=== PATIENT | male | born 1940 | race Two or more races ===

== ENCOUNTER 2020-08-26 21:20 | Inpatient (IN) | payer MEDICAID ==
[~2020-08-26] VITALS: Ht 170.2 cm; Wt 74.8 kg
[2020-08-26 21:30] VITALS: BP 123/70
--- NOTE | 2020-08-26 21:30 | NUR ---
ED Nurse Note: Patient brought in by amvulance from [facility] d/t bleeding urethra, per EMS pt had a castillo catheter that the nursing facility removed and he has been saturating his diapers with blood at the facility. Patient nonverbal, aao x 1, nonambulatory. Patient placed on monitor worker, no acute distress noted upon assessment.
[2020-08-26] MEDS ORDERED: FUROSEMIDE40 MG ORAL (21:40)
[2020-08-26] MEDS ORDERED: VENTOLIN HFA18 GM INH (21:40)
[2020-08-26] MEDS ORDERED: FLOMAX0.4 MG ORAL (21:40)
[2020-08-26] MEDS ORDERED: SILDENAFIL20 MG ORAL (21:40)
[2020-08-26] MEDS ORDERED: METOPROLOL SUCC50 MG ORAL (21:40)
[2020-08-26] MEDS ORDERED: ASPIRIN81 MG ORAL (21:40)
[2020-08-26] MEDS ORDERED: MAGNESIUM400 M1 PO (21:40)
[2020-08-26] MEDS ORDERED: ZYPREXA5 MG ORAL (21:40)
[2020-08-26] MEDS ORDERED: FOLIC ACID1 MG ORAL (21:40)
[2020-08-26] MEDS ORDERED: ACETAMINOPHEN325 M1 ORAL (21:40)
[2020-08-26] MEDS ORDERED: ATORVASTATIN CA40 MG ORAL (21:40)
[2020-08-26] MEDS ORDERED: MULTIVITAMINS1 EAC8 ORAL (21:40)
[2020-08-26] MEDS ORDERED: ELIQUIS5 MG ORAL (21:40)
[2020-08-26] MEDS ORDERED: HYDRALAZINE HCL10 MG ORAL (21:40)
[2020-08-26] MEDS ORDERED: SENOKOT8.6 MG PO (21:40)
[2020-08-26] MEDS ORDERED: KLOR-CON 88 MEQ ORAL (21:40)
--- NOTE | 2020-08-26 21:58 | Emergency Room Report ---
History of Present Illness General Chief Complaint: Male Urogenital Problems Source: Medical Record, EMS Present Illness HPI Disclaimer: Please note that this report is being documented using DRAGON technology. This can lead to erroneous entry secondary to incorrect interpretation by the dictating instrument. HPI: 79-year-old male history of atrial fibrillation on apixaban, dementia, CVA, hypertension, hyperlipidemia presents for evaluation of hematuria. Appears the patient has a chronic indwelling Markham. This was removed prior to arrival. EMS noted bleeding in the ambulance and [facility] documents bleeding from urethra. Unknown if there was a traumatic removal of the Markham or not. Unable to obtain any information from patient. Arrives tachycardic. Does not appear to be in distress. PMH: Atrial fibrillation, CVA, dementia, hypertension, hyperlipidemia PSH: Unable to obtain from patient Allergies: Unable to obtain from patient Social Hx: Unable to obtain from patient Allergies: Coded Allergies: No Known Allergies (Unverified , 08/26/20) COVID-19 Screening Contact w/high risk pt: Yes Experienced COVID-19 symptoms?: No COVID-19 Testing performed GLOVE TAGGER: No Nursing Documentation-PMH Hx Cardiac Problems: Yes - A. fib, CHF, PNA Hx Hypertension: Yes - hypertensive encephalopathy Hx Asthma: Yes Review of Systems All Other Systems: negative except mentioned in HPI Physical Exam Vital Signs Date Time Temp Pulse Resp B/P (MAP) Pulse Ox O2 Delivery O2 Flow Rate FiO2 08/26/20 21:23 96.8 72 18 89/60 (70) 99 Room Air General: Awake, confused. Bloodstained closed in hands HEENT: NC/AT. EOMI. Cardiovascular: Tachycardic Resp: Normal work of breathing. No cough, wheezing or crackles appreciated Abdomen: Abdomen is soft, nondistended : No Markham present. Dried blood over the penis and urethral meatus. No active bleeding. Skin: Intact. No abrasions, laceration or rash over the exposed skin MSK: Normal tone and bulk. Moving all extremities. No obvious deformity. Neuro: Awake, confused Procedures Critical Care Time Critical Care Time Total critical care time: Approximately 45 minutes Due to a high probability of clinically significant, life threatening deterioration, the patient required the highest level of preparedness to intervene emergently and I personally spent this critical care time directly and personally managing the patient. This critical care time included obtaining a history, examining the patient, pulse oximetry, ordering and reviewing studies, ordering treatments, evaluating response to treatment and updating management plan as needed, frequent reassessment and discussion with other providers as well as arranging for ultimate disposition. This critical to care time was performed to assess and manage the high probability of life-threatening deterioration that could result in multiorgan failure. This critical care time is separate from the separately billable procedures and treating other patients. Medical Decision Making Diagnostic Impression: Primary Impression: Atrial fibrillation with rapid ventricular response Additional Impressions: Gross hematuria Sepsis Elevated troponin UTI (urinary tract infection) ER Course Is a 79-year-old male history of atrial fibrillation on apixaban, BPH with previous Markham presenting for evaluation of hematuria. Differential includes was not limited to traumatic removal of Markham, UTI, supratherapeutic anticoagulation, kidney failure, abdominal mass, bladder injury, rapid atrial fibrillation, arrhythmia, ACS, ND, pneumonia, sepsis among others. EKG on arrival shows patient is in rapid atrial fibrillation with rate in the 140s. Cardizem given with moderate improvement though still remains tachycardic. White count significantly elevated. Urine consistent with acute urinary tract infection and gross hematuria. Patient was given broad-spectrum antibiotics. Blood culture sent. Troponin elevated. Patient receiving a 30 cc/kg IV fluid bolus. Markham was replaced; no resistance noted on insertion. Receiving continuous bladder irrigation. Patient will be admitted to his PMD, Dr. Lombardo Sepsis reevaluation: I, Dr. Harris Veloz, reevaluated the patient Capillary refill: Less than 2 seconds MAP: 75 Heart rate: 115 Respiratory rate: 20 Initial Lactate: 3.3 Repeat Lactate: 2.2 Pressors: Not indicated at this time No signs of fluid overload Laboratory Tests Test 08/26/20 21:50 08/26/20 23:20 08/26/20 23:22 White Blood Count 21.4 K/UL (4.8-10.8) H Red Blood Count 3.85 M/UL (4.70-6.10) L Hemoglobin 12.5 G/DL (14.2-18.0) L Hematocrit 37.3 % (42.0-52.0) L Mean Corpuscular Volume 97 FL (80-99) Mean Corpuscular Hemoglobin 32.5 PG (27.0-31.0) H Mean Corpuscular Hemoglobin Concent 33.6 G/DL (32.0-36.0) Red Cell Distribution Width 14.2 % (11.6-14.8) Platelet Count 47 K/UL (150-450) L Mean Platelet Volume 10.9 FL (6.5-10.1) H Neutrophils (%) (Auto) % (45.0-75.0) Lymphocytes (%) (Auto) % (20.0-45.0) Monocytes (%) (Auto) % (1.0-10.0) Eosinophils (%) (Auto) % (0.0-3.0) Basophils (%) (Auto) % (0.0-2.0) Differential Total Cells Counted 100 Neutrophils % (Manual) 66 % (45-75) Lymphocytes % (Manual) 19 % (20-45) L Monocytes % (Manual) 6 % (1-10) Eosinophils % (Manual) 1 % (0-3) Basophils % (Manual) 0 % (0-2) Metamyelocytes % 1 % (0-0) H Band Neutrophils 7 % (0-8) Nucleated Red Blood Cells 2 /100 WBC Platelet Estimate Decreased L Platelet Morphology Normal Hypochromasia 1+ Anisocytosis 1+ Prothrombin Time 15.8 SEC (9.30-11.50) H Prothrombin Time INR 1.5 (0.9-1.1) H Activated Partial Thromboplast Time 27 SEC (23-33) Sodium Level 139 MMOL/L (136-145) Potassium Level 3.5 MMOL/L (3.5-5.1) Chloride Level 104 MMOL/L (98-107) Carbon Dioxide Level 28 MMOL/L (21-32) Anion Gap 7 mmol/L (5-15) Blood Urea Nitrogen 73 mg/dL (7-18) H Creatinine 2.2 MG/DL (0.55-1.30) H Estimated Glomerular Filtration Rate 29.2 mL/min (>60) Glucose Level 160 MG/DL (74-106) H Lactic Acid Level 3.30 mmol/L (0.4-2.0) H 2.20 mmol/L (0.66-2.22) Calcium Level 8.5 MG/DL (8.5-10.1) Total Bilirubin 4.4 MG/DL (0.2-1.0) H Direct Bilirubin 3.3 MG/DL (0.0-0.3) H Aspartate Amino Transferase (AST) 75 U/L (15-37) H Alanine Aminotransferase (ALT) 34 U/L (12-78) Alkaline Phosphatase 413 U/L (46-116) H Total Creatine Kinase 107 U/L (26-308) Creatine Kinase MB 1.2 NG/ML (0.0-3.6) Creatine Kinase MB Relative Index 1.1 Troponin I 0.132 ng/mL (0.000-0.056) Total Protein 6.9 G/DL (6.4-8.2) Albumin 2.4 G/DL (3.4-5.0) L Globulin 4.5 g/dL Albumin/Globulin Ratio 0.5 (1.0-2.7) L Urine Color Red Urine Appearance Cloudy Urine pH 5 (4.5-8.0) Urine Specific [place] 1.005 (1.005-1.035) Urine Protein 3+ (NEGATIVE) H Urine Glucose (UA) Negative (NEGATIVE) Urine Ketones Negative (NEGATIVE) Urine Blood 5+ (NEGATIVE) H Urine Nitrite Positive (NEGATIVE) H Urine Bilirubin Negative (NEGATIVE) Urine Urobilinogen Normal MG/DL (0.0-1.0) Urine Leukocyte Esterase 2+ (NEGATIVE) H Urine RBC Tntc /HPF (0 - 0) H Urine WBC 15-20 /HPF (0 - 0) H Urine Squamous Epithelial Cells None /LPF (NONE/OCC) Urine Bacteria Few /HPF (NONE) Microbiology Date/Time Source Procedure Growth Status 08/26/20 22:33 Nasopharynx SARS-CoV-2 RdRp Gene Assay - Final Complete EKG Diagnostic Results Troponin ordered: Yes When was troponin ordered?: Aug 26, 2020 EKG Time: 21:47 Rate: tachycardiac Other Impression Tachycardia, irregularly irregular rhythm, left axis deviation. Consistent with rapid atrial fibrillation ASA given to the pt in ED: No - Patient is on apixaban Rhythm Strip Diag. Results Rhythm Strip Time: 21:47 EP Interpretation: yes Rate: 140s Rhythm: other - Irregularly irregular rhythm consistent with atrial fibrillation Chest X-Ray Diagnostic Results Chest X-Ray Diagnostic Results : Chest X-Ray Ordered: Yes # of Views/Limited/Complete: 1 View Indication: Other - Cough EP Interpretation: Yes Interpretation: no consolidation, no effusion, no pneumothorax, no acute cardiopulmonary disease Impression: No acute disease Last Vital Signs Date Time Temp Pulse Resp B/P (MAP) Pulse Ox O2 Delivery O2 Flow Rate FiO2 08/26/20 21:23 96.8 72 18 89/60 (70) 99 Room Air Disposition: ADMITTED INPATIENT Condition: Serious Referrals: Eric Lombardo MD (PCP) Harris Veloz MD Aug 26, 2020 21:58
[2020-08-26] MEDS ORDERED: dilTIAZem HCl 25mg/5ml Inj IVP ONE (22:00)
[2020-08-26 22:06] LABS: HEMATOCRIT 37.3 % (42.0-52.0); HEMOGLOBIN 12.5 G/DL (14.2-18.0); MEAN CORPUSCULAR VOLUME 97 FL (80-99); PLATELET COUNT 47 K/UL (150-450); RED BLOOD COUNT 3.85 M/UL (4.70-6.10); RED CELL DISTRIBUTION WIDTH 14.2 % (11.6-14.8); WHITE BLOOD COUNT 21.4 K/UL (4.8-10.8)
[2020-08-26 22:13] LABS: INR 1.5 (0.9-1.1)
[2020-08-26 22:22] LABS: CALCIUM 8.5 MG/DL (8.5-10.1); CREATININE 2.2 MG/DL (0.55-1.30); POTASSIUM 3.5 MMOL/L (3.5-5.1)
--- NOTE | 2020-08-26 22:24 | NUR ---
ED Nurse Note: 1300ml gross hematuria noted in castillo bag, ERMD aware.
--- NOTE | 2020-08-26 22:24 | NUR ---
ED Nurse Note: 3000mL continuous irrigation initiated per ERMD.
[2020-08-26] MEDS ORDERED: Piperacillin/Tazobactam 3.375 GM in NS 110 ML IVPB ONE (22:30)
[2020-08-26] MEDS ORDERED: Vancomycin 1 GM in NS 275 ML IVPB ONE (22:30)
[2020-08-26 22:35] LABS: ALBUMIN 2.4 G/DL (3.4-5.0); ALBUMIN/GLOBULIN RATIO 0.5 (1.0-2.7); BILIRUBIN,TOTAL 4.4 MG/DL (0.2-1.0); CKMB 1.2 NG/ML (0.0-3.6)
[2020-08-26 22:37] LABS: BILIRUBIN,DIRECT 3.3 MG/DL (0.0-0.3)
[2020-08-26] MEDS ORDERED: Sodium Chloride 2,200 ML IVLG ONE (22:45)
[2020-08-26] MEDS ORDERED: Acetaminophen 650 MG SUPP RECTAL PRN (23:30)
--- NOTE | 2020-08-26 23:32 | NUR ---
ED Nurse Note: FOLLOWED UP WITH BILL MABRY OF [facility]. REQUESTED POLST/CODE STATUS TO BE FAXED.
[2020-08-26 23:38] LABS: APPEARANCE,URINE CLOUDY; BILIRUBIN, URINE NEGATIVE (NEGATIVE); GLUCOSE, URINE (UA) NEGATIVE (NEGATIVE); KETONES,URINE NEGATIVE (NEGATIVE); LEUKOCYTE ESTERASE ,URINE 2+ (NEGATIVE); NITRITE,URINE POSITIVE (NEGATIVE); PH,URINE 5 (4.5-8.0); PROTEIN,URINE 3+ (NEGATIVE); UROBILINOGEN,URINE NORMAL MG/DL (0.0-1.0)
[2020-08-26 23:48] LABS: COLOR,URINE RED
[2020-08-27] VITALS (15 sets, daily range): BP systolic 80–143; BP diastolic 29–80
--- NOTE | 2020-08-27 00:28 | NUR ---
ED Nurse Note: report given to BILL Grider.
--- NOTE | 2020-08-27 00:40 | NUR ---
TRANSFER TO FLOOR: Patient transferred to SDU as ordered, per ERMD. Report given to BILL Grider. Patient transported via gurney in stable condition.
--- NOTE | 2020-08-27 00:49 | Diagnostic Imaging Report ---
EXAM: XR Chest, 1 View CLINICAL HISTORY: WEAK TECHNIQUE: Frontal view of the chest. COMPARISON: No relevant prior studies available. FINDINGS: Lungs: Small amount of airspace opacity over right lower lung zone Pleural space: Unremarkable. No pneumothorax. Mediastinum: Calcified aorta Bones/joints: Osteopenia. Moderate degenerative changes IMPRESSION: Small amount of right basilar atelectasis
--- NOTE | 2020-08-27 01:00 | NUR ---
NURSE NOTES: Received report from Cassy, Pt is transported via hospital bed via transportation staff. Pt is confused, awake and restless. pt was previously in restraints in ER for pulling devices.Pt has castillo cath 3 way intact and patent draining bright red urine. Pt has old blood on oral orifice and bleeding on the anal area. Pt has RAC g20 intact and patent. On room air satting at 95%. No pain noted. Pt is mumbling and very confused. Skin assessment done. Skin is intact orient to hospital. Bed in lowest position. Call ight within reach. MI- [address] aware[address] Veloz aware of platelet 47.
--- NOTE | 2020-08-27 01:00 | NUR ---
NURSE NOTES: Platelet of 47- Dr. Veloz aware per ER Nurse.
--- NOTE | 2020-08-27 01:15 | NUR ---
NURSE NOTES: Spoke to Dr. Lombardo regarding admission orders. Ordered to hold ASA and Eliquis. Informed that pt is bleeding on oral orifice, anal and in the penile area. Per Dr. Lombardo no consult at this time. No labs at this time. SCD for DVT px after the venous duplex scan. Continue to monitor pt.
--- NOTE | 2020-08-27 01:15 | NUR ---
NURSE NOTES: Spoke to Dr. Lombardo, pt is okay with restraints pt is pulling devices and very agitated.
--- NOTE | 2020-08-27 01:15 | NUR ---
NURSE NOTES: Per Dr. Lombardo will review orders in the morning, no new for consults for now.
--- NOTE | 2020-08-27 01:30 | NUR ---
NURSE NOTES: Left voicemail to Dr. Lombardo pt Rhythym on desk monitor is Sinus Tachy with RVR. highest 154. Awaiting for response.
--- NOTE | 2020-08-27 02:00 | NUR ---
NURSE NOTES: Pt is still tachycardic and running 145bpm. Pt's rhythym is AFIB with RVR awaiting for Dr. Lombardo response.
--- NOTE | 2020-08-27 02:01 | NUR ---
NURSE NOTES: Charge Nurse was informed. Pt still tachycardic, and waiting for Dr. Lombardo for response. TRANSCRIBING MACHINE MECHANIC was notified.
--- NOTE | 2020-08-27 02:02 | NUR ---
NURSE NOTES: COMPREHENSIVE OPHTHALMOLOGIST response immediately. Pt is still tachycardic EKG done AFIB with RVR informed Dr. Payne as last resort. BP: 136/85. HR-145. Pt is cold to touch and pale looking.
--- NOTE | 2020-08-27 02:04 | NUR ---
SENIOR DIRECTOR OF STRATEGY Note: SENIOR DIRECTOR OF STRATEGY was called at by , and notified MD Lombardo and Kerry. Responded to SENIOR DIRECTOR OF STRATEGY along with BILL Palencia. Additional orders received by and carried out on unit. See SENIOR DIRECTOR OF STRATEGY documentation form for full report.
--- NOTE | 2020-08-27 02:05 | NUR ---
NURSE NOTES: EKG done, rhythym is AFIB with RVR. Pt is still bleeding. Stilll no response from Dr. welch. VS as follows: BP:137/53, MD: 154-155 o2 sat-95%. Temp -96.8. Monitor pt closely.
--- NOTE | 2020-08-27 02:20 | NUR ---
NURSE NOTES: dr. Payne made aware of Platelet 47mg/dl.
--- NOTE | 2020-08-27 02:20 | NUR ---
NURSE NOTES: Dr. Payne ordered Digoxin. Awaiting for ackowledgement from Pharmacy.
[2020-08-27] MEDS ORDERED: Digoxin 0.5mg/2ml Inj IVP SCH ×2 (02:30→09:00)
--- NOTE | 2020-08-27 03:00 | NUR ---
NURSE NOTES: Notified Dr. Lombardo again. Left voicemail. Awaiting for response.
--- NOTE | 2020-08-27 03:07 | NUR ---
NURSE NOTES: After Dose of Digoxin still Hr- 150's.
--- NOTE | 2020-08-27 03:30 | NUR ---
NURSE NOTES: Still tachycardia at 143-145. Still bleeding on castillo cath with bright red urine. Dr. Payne was called as Dr. Lombardo no response yet. No new orders at this time. Continue to monitor pt.
--- NOTE | 2020-08-27 04:53 | NUR ---
NURSE NOTES: Cleaned pt, Sponge bath given. pt still restless and agitated. Still trying pulling out devices. Pt HR- 145bpm- Dr. Payne prev. aware. Continue to monitor pt. Yellow socks on, bed in lowest position. Call light within reach.
--- NOTE | 2020-08-27 04:58 | NUR ---
NURSE NOTES: ER brought up packet from SN.
[2020-08-27] MEDS: HydrALAZINE 10mg Tab ORAL SCH ×2 (05:05→13:00)
--- NOTE | 2020-08-27 06:04 | NUR ---
NURSE NOTES: Seen by Dr. Lombardo,New orders noted and carried out. Notified regarding the rhythym of the pt. and IA- 140's- 150's. COnsulted Dr. Zendejas for the case. Also Consulted Dr. joshi for gross hematuria. No psych eval for now. Repeat Trop I and cbc with BMP now. Diet to Cardiac pureed. aware of platelet 47 and Trop of 0.132. New orders carried out and noted.
--- NOTE | 2020-08-27 06:29 | NUR ---
NURSE NOTES: repositioned pt, pt is still agitated and restless. Restraints care done. Pt no discoloration in the skin underneath. Pulses are palpable. Continue to monitor pt.
[2020-08-27 06:32] LABS: HEMATOCRIT 35.2 % (42.0-52.0); MEAN CORPUSCULAR VOLUME 100 FL (80-99); PLATELET COUNT 51 K/UL (150-450); RED BLOOD COUNT 3.52 M/UL (4.70-6.10); RED CELL DISTRIBUTION WIDTH 15.2 % (11.6-14.8)
[2020-08-27 06:35] LABS: WHITE BLOOD COUNT 24.2 K/UL (4.8-10.8)
--- NOTE | 2020-08-27 06:36 | NUR ---
NURSE NOTES: Dr. welch made aware that WBC- 24.2. Awaiting for response.
[2020-08-27 06:40] LABS: CREATININE 2.3 MG/DL (0.55-1.30)
--- NOTE | 2020-08-27 06:41 | NUR ---
Left message to Dr. Lombardo. WBC- 24.2 , Sodium -148, Potassium- 3.0. Waiting for response.
--- NOTE | 2020-08-27 06:42 | Consultation ---
History of Present Illness General Chief Complaint: Male Urogenital Problems Present Illness Allergies: Coded Allergies: No Known Allergies (Unverified , 08/26/20) Medication History Scheduled Albuterol Sulfate (Ventolin Hfa), 1 PUFF INH EVERY 6 HOURS, (Reported) Apixaban (Eliquis*), 5 MG ORAL BID, (Reported) Aspirin* (Aspirin*), 81 MG ORAL DAILY, (Reported) Atorvastatin Calcium* (Atorvastatin Calcium*), 40 MG ORAL BEDTIME, (Reported) Folic Acid* (Folic Acid*), 1 MG ORAL DAILY, (Reported) Furosemide* (Lasix*), 40 MG ORAL TWICE A DAY, (Reported) Hydralazine Hcl* (Hydralazine Hcl*), 10 MG ORAL EVERY 8 HOURS, (Reported) Metoprolol Succinate* (Metoprolol Succinate*), 50 MG ORAL DAILY, (Reported) Multivitamin With Minerals (Multivitamins With Minerals*), 1 TAB ORAL DAILY, (Reported) Olanzapine* (Zyprexa*), 5 MG ORAL DAILY, (Reported) Potassium Chloride (Klor-Con 8), 8 MEQ ORAL DAILY, (Reported) Tamsulosin HCl (Flomax), 0.4 MG ORAL DAILY, (Reported) Scheduled PRN Acetaminophen* (Acetaminophen 325MG Tablet*), 650 MG ORAL Q4H PRN for , (Reported) Miscellaneous Medications Magnesium Oxide (Magnesium), 400 MG PO, (Reported) Sennosides (Senokot), 8.6 MG PO, (Reported) Sildenafil Citrate (Sildenafil), 20 MG ORAL, (Reported) Patient History Healthcare decision maker Resuscitation status Advanced Directive on File Physical Exam Last 24 Hour Vital Signs Date Time Temp Pulse Resp B/P (MAP) Pulse Ox O2 Delivery O2 Flow Rate FiO2 08/27/20 05:05 134/91 08/27/20 04:12 96.6 130 20 143/80 (101) 95 08/27/20 04:00 Room Air 08/27/20 03:49 135 08/27/20 03:39 160 08/27/20 02:44 131 08/27/20 02:42 154 20 95 08/27/20 02:39 153 08/27/20 02:36 141 08/27/20 01:06 141 08/27/20 01:01 124 11/18/20 00:40 99.1 118 20 133/72 95 Room Air 08/26/20 21:58 145 100/52 08/26/20 21:30 99.1 115 23 123/70 97 Room Air 08/26/20 21:23 96.8 72 18 89/60 (70) 99 Room Air Intake and Output 08/26/20 08/27/20 19:00 07:00 Intake Total 3510 ml Output Total 4550 ml Balance -1040 ml Intake IV Total 510 ml Other 3000 ml Output Urine Total 4550 ml # Bowel Movements 2 Laboratory Tests Test 08/26/20 21:50 08/26/20 23:20 08/26/20 23:22 08/27/20 06:15 White Blood Count 21.4 K/UL (4.8-10.8) H 24.2 K/UL (4.8-10.8) *H Red Blood Count 3.85 M/UL (4.70-6.10) L 3.52 M/UL (4.70-6.10) L Hemoglobin 12.5 G/DL (14.2-18.0) L 12.0 G/DL (14.2-18.0) L Hematocrit 37.3 % (42.0-52.0) L 35.2 % (42.0-52.0) L Mean Corpuscular Volume 97 FL (80-99) 100 FL (80-99) H Mean Corpuscular Hemoglobin 32.5 PG (27.0-31.0) H 34.1 PG (27.0-31.0) H Mean Corpuscular Hemoglobin Concent 33.6 G/DL (32.0-36.0) 34.1 G/DL (32.0-36.0) Red Cell Distribution Width 14.2 % (11.6-14.8) 15.2 % (11.6-14.8) H Platelet Count 47 K/UL (150-450) L 51 K/UL (150-450) L Mean Platelet Volume 10.9 FL (6.5-10.1) H 12.0 FL (6.5-10.1) H Neutrophils (%) (Auto) % (45.0-75.0) % (45.0-75.0) Lymphocytes (%) (Auto) % (20.0-45.0) % (20.0-45.0) Monocytes (%) (Auto) % (1.0-10.0) % (1.0-10.0) Eosinophils (%) (Auto) % (0.0-3.0) % (0.0-3.0) Basophils (%) (Auto) % (0.0-2.0) % (0.0-2.0) Differential Total Cells Counted 100 Neutrophils % (Manual) 66 % (45-75) Pending Lymphocytes % (Manual) 19 % (20-45) L Pending Monocytes % (Manual) 6 % (1-10) Eosinophils % (Manual) 1 % (0-3) Basophils % (Manual) 0 % (0-2) Metamyelocytes % 1 % (0-0) H Band Neutrophils 7 % (0-8) Nucleated Red Blood Cells 2 /100 WBC Platelet Estimate Decreased L Pending Platelet Morphology Normal Pending Hypochromasia 1+ Anisocytosis 1+ Prothrombin Time 15.8 SEC (9.30-11.50) H Prothromb Time International Ratio 1.5 (0.9-1.1) H Activated Partial Thromboplast Time 27 SEC (23-33) Sodium Level 139 MMOL/L (136-145) 148 MMOL/L (136-145) H Potassium Level 3.5 MMOL/L (3.5-5.1) 3.0 MMOL/L (3.5-5.1) L Chloride Level 104 MMOL/L (98-107) 112 MMOL/L (98-107) H Carbon Dioxide Level 28 MMOL/L (21-32) 22 MMOL/L (21-32) Anion Gap 7 mmol/L (5-15) 14 mmol/L (5-15) Blood Urea Nitrogen 73 mg/dL (7-18) H 69 mg/dL (7-18) H Creatinine 2.2 MG/DL (0.55-1.30) H 2.3 MG/DL (0.55-1.30) H Estimat Glomerular Filtration Rate 29.2 mL/min (>60) 27.7 mL/min (>60) Glucose Level 160 MG/DL (74-106) H 167 MG/DL (74-106) H Lactic Acid Level 3.30 mmol/L (0.4-2.0) H 2.20 mmol/L (0.66-2.22) Calcium Level 8.5 MG/DL (8.5-10.1) 8.0 MG/DL (8.5-10.1) L Total Bilirubin 4.4 MG/DL (0.2-1.0) H Direct Bilirubin 3.3 MG/DL (0.0-0.3) H Aspartate Amino Transf (AST/SGOT) 75 U/L (15-37) H Alanine Aminotransferase (ALT/SGPT) 34 U/L (12-78) Alkaline Phosphatase 413 U/L (46-116) H Total Creatine Kinase 107 U/L (26-308) Creatine Kinase MB 1.2 NG/ML (0.0-3.6) Creatine Kinase MB Relative Index 1.1 Troponin I 0.132 ng/mL (0.000-0.056) Pending Total Protein 6.9 G/DL (6.4-8.2) Albumin 2.4 G/DL (3.4-5.0) L Globulin 4.5 g/dL Albumin/Globulin Ratio 0.5 (1.0-2.7) L Urine Color Red Urine Appearance Cloudy Urine pH 5 (4.5-8.0) Urine Specific [place] 1.005 (1.005-1.035) Urine Protein 3+ (NEGATIVE) H Urine Glucose (UA) Negative (NEGATIVE) Urine Ketones Negative (NEGATIVE) Urine Blood 5+ (NEGATIVE) H Urine Nitrite Positive (NEGATIVE) H Urine Bilirubin Negative (NEGATIVE) Urine Urobilinogen Normal MG/DL (0.0-1.0) Urine Leukocyte Esterase 2+ (NEGATIVE) H Urine RBC Tntc /HPF (0 - 0) H Urine WBC 15-20 /HPF (0 - 0) H Urine Squamous Epithelial Cells None /LPF (NONE/OCC) Urine Bacteria Few /HPF (NONE) Microbiology Date/Time Source Procedure Growth Status 08/26/20 22:33 Nasopharynx SARS-CoV-2 RdRp Gene Assay - Final Complete Height (Feet): 5 Height (Inches): 7.00 Weight (Pounds): 165 Medications Current Medications Medications (Trade) Dose Ordered Sig/Madi Route PRN Reason Start Time Stop Time Status Last Admin Dose Admin Acetaminophen (Tylenol) 650 mg Q4H PRN ORAL 08/27/20 01:30 09/26/20 01:29 UNV Albuterol Sulfate (Proventil MDI) 1 puff EVERY 6 HOURS INH 08/27/20 06:00 11/25/20 05:59 UNV Atorvastatin Calcium (Lipitor) 40 mg BEDTIME ORAL 08/27/20 21:00 11/25/20 20:59 Folic Acid (Folate) 1 mg DAILY ORAL 08/27/20 09:00 09/26/20 08:59 Furosemide (Lasix) 40 mg TWICE A DAY ORAL 08/27/20 09:00 09/26/20 08:59 Hydralazine HCl (Apresoline) 10 mg EVERY 8 HOURS ORAL 08/27/20 06:00 11/25/20 05:59 08/27/20 05:05 Magnesium Oxide (Mag-Ox 400mg) 400 mg THREE TIMES A DAY ORAL 08/27/20 09:00 09/26/20 08:59 Metoprolol Succinate (Toprol XL) 50 mg DAILY ORAL 08/27/20 09:00 11/25/20 08:59 Olanzapine (ZyPREXA) 5 mg DAILY ORAL 08/27/20 09:00 10/11/20 08:59 Potassium Chloride (K-Dur) 10 meq DAILY ORAL 08/27/20 09:00 11/25/20 08:59 Sennosides (Senokot) 8.6 mg QHS ORAL 08/27/20 21:00 09/26/20 20:59 Sildenafil Citrate (Revatio) 20 mg BID ORAL 08/27/20 09:00 11/25/20 08:59 Sodium Chloride 1,000 ml @ 100 mls/hr Q10H IV 08/27/20 02:00 09/26/20 01:59 08/27/20 01:39 Tamsulosin HCl (Flomax) 0.4 mg DAILY ORAL 08/27/20 09:00 09/26/20 08:59 Assessment/Plan Assessment/Plan: Hematology Consultation CHRISTINE IQBAL: Tran Lombardo RFC: Thrombocytopenia, Anemia DOS: 08/27/2020 ID: 79-year-old male history of atrial fibrillation on apixaban, dementia, CVA, hypertension, hyperlipidemia presents for evaluation of hematuria. Appears the patient has a chronic indwelling Castillo. This was removed prior to arrival. EMS noted bleeding in the ambulance and assisted documents bleeding from urethra. Unknown if there was a traumatic removal of the Castillo or not. Unable to obtain any information from patient. Arrives tachycardic. Does not appear to be in distress. Noted to have low plts and anemia at this time, with coagulopathy, heme consulted. currently is very confused and this is the first time he is here. PMH: Atrial fibrillation, CVA, dementia, hypertension, hyperlipidemia PSH: Unable to obtain from patient Allergies: Unable to obtain from patient Social Hx: Unable to obtain from patient Allergies: Coded Allergies: No Known Allergies (Unverified , 08/26/20) COVID-19 Screening Contact w/high risk pt: Yes Experienced COVID-19 symptoms?: No COVID-19 Testing performed CONTINUOUS IMPROVEMENT DIRECTOR: No Nursing Documentation-PMH Hx Cardiac Problems: Yes - A. fib, CHF, PNA Hx Hypertension: Yes - hypertensive encephalopathy Hx Asthma: Yes Review of Systems All Other Systems: negative except mentioned in HPI Physical Exam General: Awake, confused. Bloodstained closed in hands HEENT: NC/AT. EOMI. Cardiovascular: Tachycardic Resp: Normal work of breathing. No cough, wheezing or crackles appreciated Abdomen: Abdomen is soft, nondistended : No Castillo present. Dried blood over the penis and urethral meatus. Skin: Intact. No abrasions, laceration or rash over the exposed skin MSK: Normal tone and bulk. Moving all extremities. Neuro: Awake, confused Labs: reviewed Imaging: noted Assessment and Recs # Severe leukocytois r/o underlying infection v reactive process --> ABX as per id --> smear does show abnormalities-->flow has been ordered --> wbc 21->24 # Thrombocytopenia that is present since admission, do not have baseline --> plt 47-->51 --> monitor for bleed, transfuse prn --> hep and hiv ordered --> smear is reviewed --> us abd as needed # Coagulopathy, may be related to liver disease --> imaging abd --> mixing study ordered --> smear reviewed # Hypercoagulable disorder with Atrial fibrillation with rapid ventricular response --> anticoag is on hold # Gross hematuria --> with castillo # Sepsis # Elevated troponin # UTI (urinary tract infection) # Dvt ppx scds Appreciate consultation and dw Reece Reyes MD Aug 27, 2020 06:42
--- NOTE | 2020-08-27 06:51 | NUR ---
NURSE NOTES: Trop I- 0.235- Awaiting for response from Dr. Lombardo. Continue to monitor pt closely.
--- NOTE | 2020-08-27 07:10 | NUR ---
NURSE NOTES: Dr Starkey at bedside,bladder irrigation done manually,urine bloody with clots.pt confused no resp distress presented.
--- NOTE | 2020-08-27 07:10 | NUR ---
NURSE NOTES: Received report from BILL Grider. Patient is on bed, agitated and pulling on bed linens. Patient is mumbling words and cannot be comprehended. Patient is on room air O2 sat is around 97%. Heart rate is around 130s with afib. Bed is on the lowest position, locked, and side rails are up 3x. Patient has a R AC 20 g IV running NS 100 ml/hr. Patient is currently NPO except for meds. Patient has a castillo catheter draining bright red urine. Patient will continue to be monitored all throughout the shift.
--- NOTE | 2020-08-27 07:26 | NUR ---
NURSE HAND-OFF REPORT: Important Events on Shift: New admit, with gross hematuria- 450 ml bright red bleeding, AFIB with RVR- Tachy- 150's Patient Status: Stable Diet: NPO Pending Orders: None Pending Results/Labs: None Pending MD notification: Dr. Lombardo regarding lab results- Endorsed to AM nurse Latest Vital Signs: Temperature 96.6 , Pulse 130 , B/P 134 /91 , Respiratory Rate 20 , O2 SAT 95 , Room Air, O2 Flow Rate . Vital Sign Comment: Tachy EKG Rhythm: AFIB with RVR Rhythm change?: Y MD Notified?: Y -Left message to Dr. Lombardo/ Dr. Payne prev notified MD Response: No New Orders Received Latest Elias Fall Score: 60 Fall Risk: High Risk Safety Measures: Call light , Bed Alarm Zone 2, Side Rails Side Rails x3, Bed position Low and Locked. Fall Precautions: Yellow Socks Yellow Gown Patient Fall Education Report given to [Andrés Nicole RN].
--- NOTE | 2020-08-27 07:50 | NUR ---
NURSE NOTES: Manually bladder irrigated by Dr. Starkey.
[2020-08-27] MEDS ORDERED: Albuterol ud Inhalation HHN PRN (08:30)
--- NOTE | 2020-08-27 08:30 | NUR ---
NURSE NOTES: US in the abdomen.
--- NOTE | 2020-08-27 08:44 | NUR ---
Speech Pathology Note (Bedside Dysphagia Evaluation) Recent Hospitalization: 08/02/2020~08/20/2020 ([facility]) [facility]: 08/20/2020~ 08/26/2020 (mechanical soft diet, nectar thick liquid) ED [facility]: 08/26/2020~ Brief Note: Mr. Meneses is a 79 year old male admitted [facility] for evaluation of hematuria on 08/26/2020. He was found to be tachycardia and hypotensive at ED. He reportedly confused to provide any information at ED. The lab work up was remarkable for leukocytosis(21.4), thrombocytopenia(47) normal H/H, with coagulation 15.8/27/1.5. Electrolytes were remarkable for BUN/Creatine at 69/2.3. CXR indicated no acute cardiopulmonary process. Pt is currently NPO and swallow evaluation was ordered. PMH/PSH: A-fib, Dementia, HTN, Hyperlipidemia Findings: Mr. Meneses presents with restrains for safety and protective measure for secure the lines and catheters. Pt is severely confused and unable to state his name. He does not follow commands. He is tachycardia between 120-150, satting 98% ORA. His voice and cough is normal without any concerns of laryngeal dysfunction. The mucosa of oral cavity is dried with erythema. No active bleeding site was seen in oral cavity. The movement of his tongue is discoordinate but adequate strength. Teeth are missing. Given him apple sauce and sorbet, he tolerated well without overt s.s of aspiration. He consumed about 50cc. Interpretation: 1. Adequate swallow function 2. Aspiration risk due to poor PO awareness, insights for safety and needs to be fed Plan: 1. Pureed and nectar thick liquid 2. Aspiration precaution Tamie Hogan
--- NOTE | 2020-08-27 08:45 | Consultation ---
DATE OF CONSULTATION: 08/27/2020 CONSULTING PHYSICIAN: Pedro Starkey MD. REFERRING PHYSICIAN: Eric Lombardo MD. REASON FOR CONSULTATION: Evaluation of hematuria. HISTORY OF PRESENT ILLNESS: A 79-year-old male [facility] with chronic Markham, was brought in because of gross hematuria. Markham catheter was placed in the emergency room. He was having bladder irrigation continuous. Most of the history was obtained from the chart. Apparently in the penitentiary, the patient is on Eliquis and aspirin. PAST MEDICAL HISTORY: Significant for dementia, also history of atrial fibrillation, CVA, hypertension, and hyperlipidemia. PAST SURGICAL HISTORY: Unknown. MEDICATIONS: Current medication list was reviewed. PHYSICAL EXAMINATION: GENERAL: The patient is confused. VITAL SIGNS: Temperature is 96.6, blood pressure 134/91. ABDOMEN: Soft. GENITOURINARY: Markham is in place, 18-Lao 3-way. Urine is blood tinged. LABORATORY DATA: PT 15.8, INR 1.5. White count 24.2, hemoglobin 12.0. BUN is 69, creatinine 2.3. Urinalysis shows 3+ protein, too numerous to count rbc's, 5 to 10 wbc's. DIAGNOSTIC IMAGING: The patient had a chest x-ray, which was reviewed. IMPRESSION: 1. Gross hematuria. 2. BPH. 3. Urinary retention. 4. Probable neurogenic bladder. 5. Chronic kidney disease. 6. Proteinuria. 7. Pyuria, possible UTI colonization. PLAN AND DISCUSSION: The patient's Markham catheter is in place, was placed in the ER. It was hand irrigated, irrigates fairly well without significant clots. Urine is blood tinged. I would recommend to keep the patient in restraints to make sure he is not pulling on the catheter. He needs to stay off anticoagulation and I will also add Flomax and Avodart. His Markham catheter will be hand irrigated on a p.r.n. basis and we will consider renal imaging and cystoscopy at some point electively. Thank you for this consultation. Pedro Starkey M.D. DR: MAINE JOB#: [id number] CC:
[2020-08-27] MEDS ORDERED: OLANZapine 2.5mg tab ORAL SCH (09:00)
[2020-08-27] MEDS ORDERED: Metoprolol Succinate XL 50mg tab ORAL SCH (09:00)
[2020-08-27] MEDS ORDERED: Tamsulosin 0.4mg cap ORAL SCH (09:00)
[2020-08-27] MEDS: Magnesium Oxide 400mg tab ORAL SCH ×3 (09:00→17:19)
[2020-08-27] MEDS: Revatio 20mg tab ORAL SCH ×2 (09:00→17:20)
[2020-08-27] MEDS: Furosemide 40mg tab ORAL SCH ×2 (09:00→17:19)
--- NOTE | 2020-08-27 09:00 | NUR ---
NURSE NOTES: Patient cannot take medications. He is lethargic and unable to follow commands.
--- NOTE | 2020-08-27 11:00 | NUR ---
NURSE NOTES: called Dr Birch re K level 3.0,ordered for KCL 40 meq IV.
--- NOTE | 2020-08-27 11:30 | NUR ---
NURSE NOTES: Dr Zendejas at bedside,updated re pt's status,pt AFIB with RVR ,HR 138-144/min.Pt S/p COMPUTER TAPE LIBRARIAN early am for shearer operator for AFIV RVR.
--- NOTE | 2020-08-27 11:35 | NUR ---
NURSE NOTES: Dr Zendejas ordered transfer pt to ICU,Nsg elevator constructor supervisor Jess notified and ICU Ch RN Preethi,bed given pt to transfer to [facility]
--- NOTE | 2020-08-27 11:43 | Cardiac Electrophysiology PN ---
Subjective Subjective [id number] Objective Last 24 Hour Vital Signs Date Time Temp Pulse Resp B/P (MAP) Pulse Ox O2 Delivery O2 Flow Rate FiO2 08/27/20 09:00 128 140/58 08/27/20 08:00 Room Air 08/27/20 08:00 135 08/27/20 08:00 96.6 128 20 140/58 (85) 99 08/27/20 05:05 134/91 08/27/20 04:12 96.6 130 20 143/80 (101) 95 08/27/20 04:00 Room Air 08/27/20 03:49 135 08/27/20 03:39 160 08/27/20 02:44 131 08/27/20 02:42 154 20 95 08/27/20 02:39 153 08/27/20 02:36 141 08/27/20 01:06 141 08/27/20 01:01 124 08/27/20 00:40 99.1 118 20 133/72 95 Room Air 08/26/20 21:58 145 100/52 08/26/20 21:30 99.1 115 23 123/70 97 Room Air 08/26/20 21:23 96.8 72 18 89/60 (70) 99 Room Air Intake and Output 08/26/20 08/27/20 18:59 06:59 Intake Total 3610 ml Output Total 4550 ml Balance -940 ml Intake IV Total 610 ml Other 3000 ml Output Urine Total 4550 ml # Bowel Movements 2 Laboratory Tests Test 08/26/20 21:50 08/26/20 23:20 08/26/20 23:22 08/27/20 06:15 White Blood Count 21.4 K/UL (4.8-10.8) H 24.2 K/UL (4.8-10.8) *H Red Blood Count 3.85 M/UL (4.70-6.10) L 3.52 M/UL (4.70-6.10) L Hemoglobin 12.5 G/DL (14.2-18.0) L 12.0 G/DL (14.2-18.0) L Hematocrit 37.3 % (42.0-52.0) L 35.2 % (42.0-52.0) L Mean Corpuscular Volume 97 FL (80-99) 100 FL (80-99) H Mean Corpuscular Hemoglobin 32.5 PG (27.0-31.0) H 34.1 PG (27.0-31.0) H Mean Corpuscular Hemoglobin Concent 33.6 G/DL (32.0-36.0) 34.1 G/DL (32.0-36.0) Red Cell Distribution Width 14.2 % (11.6-14.8) 15.2 % (11.6-14.8) H Platelet Count 47 K/UL (150-450) L 51 K/UL (150-450) L Mean Platelet Volume 10.9 FL (6.5-10.1) H 12.0 FL (6.5-10.1) H Neutrophils (%) (Auto) % (45.0-75.0) % (45.0-75.0) Lymphocytes (%) (Auto) % (20.0-45.0) % (20.0-45.0) Monocytes (%) (Auto) % (1.0-10.0) % (1.0-10.0) Eosinophils (%) (Auto) % (0.0-3.0) % (0.0-3.0) Basophils (%) (Auto) % (0.0-2.0) % (0.0-2.0) Differential Total Cells Counted 100 100 Neutrophils % (Manual) 66 % (45-75) 66 % (45-75) Lymphocytes % (Manual) 19 % (20-45) L 10 % (20-45) L Monocytes % (Manual) 6 % (1-10) 5 % (1-10) Eosinophils % (Manual) 1 % (0-3) 0 % (0-3) Basophils % (Manual) 0 % (0-2) 0 % (0-2) Metamyelocytes % 1 % (0-0) H Band Neutrophils 7 % (0-8) 17 % (0-8) H Nucleated Red Blood Cells 2 /100 WBC Platelet Estimate Decreased L Decreased L Platelet Morphology Normal Normal Hypochromasia 1+ 1+ Anisocytosis 1+ 1+ Prothrombin Time 15.8 SEC (9.30-11.50) H Prothromb Time International Ratio 1.5 (0.9-1.1) H Activated Partial Thromboplast Time 27 SEC (23-33) Sodium Level 139 MMOL/L (136-145) 148 MMOL/L (136-145) H Potassium Level 3.5 MMOL/L (3.5-5.1) 3.0 MMOL/L (3.5-5.1) L Chloride Level 104 MMOL/L (98-107) 112 MMOL/L (98-107) H Carbon Dioxide Level 28 MMOL/L (21-32) 22 MMOL/L (21-32) Anion Gap 7 mmol/L (5-15) 14 mmol/L (5-15) Blood Urea Nitrogen 73 mg/dL (7-18) H 69 mg/dL (7-18) H Creatinine 2.2 MG/DL (0.55-1.30) H 2.3 MG/DL (0.55-1.30) H Estimat Glomerular Filtration Rate 29.2 mL/min (>60) 27.7 mL/min (>60) Glucose Level 160 MG/DL (74-106) H 167 MG/DL (74-106) H Lactic Acid Level 3.30 mmol/L (0.4-2.0) H 2.20 mmol/L (0.66-2.22) Calcium Level 8.5 MG/DL (8.5-10.1) 8.0 MG/DL (8.5-10.1) L Total Bilirubin 4.4 MG/DL (0.2-1.0) H Direct Bilirubin 3.3 MG/DL (0.0-0.3) H Aspartate Amino Transf (AST/SGOT) 75 U/L (15-37) H Alanine Aminotransferase (ALT/SGPT) 34 U/L (12-78) Alkaline Phosphatase 413 U/L (46-116) H Total Creatine Kinase 107 U/L (26-308) Creatine Kinase MB 1.2 NG/ML (0.0-3.6) Creatine Kinase MB Relative Index 1.1 Troponin I 0.132 ng/mL (0.000-0.056) 0.235 ng/mL (0.000-0.056) Total Protein 6.9 G/DL (6.4-8.2) Albumin 2.4 G/DL (3.4-5.0) L Globulin 4.5 g/dL Albumin/Globulin Ratio 0.5 (1.0-2.7) L Urine Color Red Urine Appearance Cloudy Urine pH 5 (4.5-8.0) Urine Specific [place] 1.005 (1.005-1.035) Urine Protein 3+ (NEGATIVE) H Urine Glucose (UA) Negative (NEGATIVE) Urine Ketones Negative (NEGATIVE) Urine Blood 5+ (NEGATIVE) H Urine Nitrite Positive (NEGATIVE) H Urine Bilirubin Negative (NEGATIVE) Urine Urobilinogen Normal MG/DL (0.0-1.0) Urine Leukocyte Esterase 2+ (NEGATIVE) H Urine RBC Tntc /HPF (0 - 0) H Urine WBC 15-20 /HPF (0 - 0) H Urine Squamous Epithelial Cells None /LPF (NONE/OCC) Urine Bacteria Few /HPF (NONE) Blast Cells % 2 % (0-0) *H Other Cell Type Pathologist review Macrocytosis Occasional Test 08/27/20 09:00 Sickle Cell Screen Pending PTT Mixing Study Pending APTT Patient/Control Mix Pending Mix PTT Incubation Time Pending Mix PTT Normal/Saline 1:1 Immediate Pending Thrombin Time Normal Plasma Pending Iron Level Pending Unsaturated Iron Binding Pending Ferritin Pending Vitamin B12 Level Pending Folate Pending Hepatitis A IgM Antibody Pending Hepatitis B Surface Antigen Pending Hepatitis B Core IgM Antibody Pending Hepatitis C Antibody Pending HIV (1&2) Antibody Rapid Negative (NEGATIVE) Microbiology Date/Time Source Procedure Growth Status 08/26/20 22:33 Nasopharynx SARS-CoV-2 RdRp Gene Assay - Final Complete Junior Zendejas MD Aug 27, 2020 11:43
[2020-08-27 11:46] LABS: FERRITIN > 2000 NG/ML (8-388)
[2020-08-27 11:55] LABS: % IRON SATURATION 61 % (15-50); IRON 86 ug/dL (50-175); TOTAL IRON BINDING CAPACITY 141 ug/dL (250-450)
--- NOTE | 2020-08-27 12:00 | NUR ---
TRANSFER TO FLOOR: Patient transferred to ICU 246-B, per bed awake,obtunded RA in no resp distress,O2 sat 94%.. Report given to Angelique GROCERY SHOPPER. medications given to receiving RN.
--- NOTE | 2020-08-27 12:08 | NUR ---
Speech Note: Pt is transferring to ICU per healthcare receptionist. Pt appeared to be more jaundice since this morning. NPO for now.
--- NOTE | 2020-08-27 12:15 | NUR ---
NURSE NOTES: Pt transferred from SDU for Afib w/ RVR, HR in the 130's on bus monitor. Report and pt received from BILL Nicole. Pt on 2L NC, O2sat 100%. Rt AC #20g, running NS @ 100mL/hr. Pt will be started on a Cardizem drip, per Dr Zendejas. Markham catheter noted, bleeding from the urethra and in the urine noted. OB stool to be collected; however pt has yet to have a BM. Bed locked and in lowest position. No distress noted. Will resume plan on care.
[2020-08-27] MEDS ORDERED: dilTIAZem Premix 125mg/125ml 125 ML IVPB SCH (12:42)
--- NOTE | 2020-08-27 12:45 | History and Physical Report ---
DATE OF ADMISSION: 08/26/2020 HISTORY OF PRESENT ILLNESS: This is a 79-year-old [place] male who came from a assisted. He had bleeding from mouth as well as in urethra. The patient was admitted to [facility] where he had some bleeding from mouth as well as in urine. His urine is grossly hematuria. The patient is confused and agitated. He is in no distress. PAST MEDICAL HISTORY: Significant for coronary artery disease, 00:48___, hypertension, dementia, and depression. MEDICATIONS: See the list. ALLERGIES: NKA. FAMILY HISTORY: Noncontributory. SOCIAL HISTORY: The patient lives at assisted, mostly wheelchair bound or bedbound. REVIEW OF SYSTEMS: Cannot be obtained because of confusion. He has been slightly diaphoretic. PHYSICAL EXAMINATION: HEENT: Eyes are open. NECK: Supple. CHEST: Bilateral decreased breath sounds. CARDIOVASCULAR: Regular rhythm. Tachycardia. ABDOMEN: Soft. Positive bowel sounds. Nontender. EXTREMITIES: No edema. GENITOURINARY: The patient has Markham catheter, has been draining gross hematuria. 01:38 Deferred . LABORATORY DATA: His hemoglobin is . ASSESSMENT AND PLAN: 1. Hematuria. 2. Sepsis. 3. Coronary artery disease. 4. Dementia. PLAN: We will admit him to [facility], start 02:00. Consider hematology/oncology consult 02:06. Continue monitoring H and H. Consider hematology/oncology and urology consult. Parrish Lombardo M.D. DR: Yogi JOB#: [id number] CC:
--- NOTE | 2020-08-27 13:05 | NUR ---
NURSE NOTES: ear mold laboratory technician at bedside performing 2D echo.
[2020-08-27] MEDS ORDERED: Varibar Pudding 230ml MC PRN (13:15)
[2020-08-27] MEDS ORDERED: Varibar Nectar 240ml MC PRN (13:15)
[2020-08-27] MEDS ORDERED: Varibar Thin Liquid powder 148gm MC PRN (13:15)
[2020-08-27] MEDS ORDERED: Varibar Honey 250ml MC PRN (13:15)
[2020-08-27] MEDS: Piperacillin/Tazobactam 2.25 GM in NS 55 ML IV SCH ×2 (13:26→18:21)
[2020-08-27] MEDS ORDERED: Acetaminophen 650 MG SUPP RECTAL PRN ×2 (13:45)
[2020-08-27] MEDS ORDERED: Lidocaine 1% Plain 30 ml INJ PRN (14:00)
[2020-08-27] MEDS ORDERED: Sodium Bicarbonate 4% 2.4meq/5ml vial IV PRN (14:00)
[2020-08-27] MEDS ORDERED: Piperacillin/Tazobactam 3.375 GM in NS 110 ML IVPB SCH (14:00)
--- NOTE | 2020-08-27 14:15 | Consultation ---
DATE OF CONSULTATION: 08/27/2020 PULMONARY CONSULTATION CONSULTING PHYSICIAN: Easton Payne MD. HISTORY OF PRESENT ILLNESS: This is a 79-year-old male with history of atrial fibrillation on chronic anticoagulation, dementia, CVA, hypertension, hyperlipidemia, was brought to the hospital with hematuria. The patient has a chronic indwelling Markham in place. The patient was seen and evaluated by Dr. Pedro Starkey, who irrigated the Markham. He recommended discontinuing the anticoagulation and also added Flomax and Avodart. The patient at this time was seen in step-down unit. Overnight he has significant cardiac arrhythmias and has received digoxin per my order. REVIEW OF SYSTEMS: Not obtainable. PAST HISTORY: Atrial fibrillation, CVA, dementia, hypertension, hyperlipidemia, chronic Markham. CURRENT MEDICATIONS: Include Lipitor, Proscar, folic acid, Lasix, hydralazine, magnesium, metoprolol, Zyprexa, Zosyn, potassium, , Flomax. PHYSICAL EXAMINATION: VITAL SIGNS: Blood pressure 140/60, heart rate 120, respirations 18, O2 saturation 100% on room air. GENERAL: Reveals a 79-year-old male. HEENT: Unremarkable. CHEST: Clear breath sounds bilaterally. ABDOMEN: Soft. EXTREMITIES: There is no edema. Markham is in place. LABORATORY DATA: Lab testing shows white count 24,000, hemoglobin of 12, platelet count is 51,000, which is low. Creatinine 2.3, sodium 148, potassium 3. Coags, INR 1.5. Urinalysis shows too numerous to count rbc. IMAGING STUDIES: The patient underwent a chest x-ray, which showed right atelectasis. IMPRESSION: 1. AFib with RVR. 2. Dementia. 3. Previous CVA. 4. Hematuria. 5. Urosepsis. DISCUSSION: Admit to the hospital. Hold anticoagulation given hematuria. Broad-spectrum antibiotics to be given. Rate control. We will follow as handstitching machine armhole feller. Current saturating well on room air. Easton Payne M.D. DR: ERIKA/TOMI JOB#: [id number] CC:
--- NOTE | 2020-08-27 15:00 | NUR ---
NURSE NOTES: Pt is restless and confused. Remains on 2 point wrist restraints for safety and to prevent puling of tubing. Pt on Cardizem drip at 10mg/hr.
--- NOTE | 2020-08-27 15:09 | NUR ---
CASE MANAGEMENT:REVIEW 08/27/20 SI: AFIB W/RVR 96.6 147 39 99/61 91% ON 2L WBC+24.2 PLT-51 K-3.0 BUN+69 CR+2.3 TROPONIN(+) 0.235 IS: CARDIZEM GTT IV KCL Q1HRS X4 BAGS IV ZOSYN Q8HRS IVF@100/HR : TRANSFERRED FROM SDU TO ICU
--- NOTE | 2020-08-27 15:24 | Cardiology Report ---
APPROVED REPORT EKG Measurement Heart [id number] <Conclusion> Atrial fibrillation with rapid ventricular response Left axis deviation Nonspecific ST abnormality Abnormal ECG
--- NOTE | 2020-08-27 16:02 | Cardiology Report ---
APPROVED REPORT EXAM: Two-dimensional and M-mode echocardiogram with Doppler and color Doppler. INDICATION Congestive Heart Failure M-Mode DIMENSIONS IVSd1.4 (0.7-1.1cm)Left Atrium (MM)4.6 (1.6-4.0cm) LVDd5.9 (3.5-5.6cm)Aortic Root2.9 (2.0-3.7cm) PWd1.4 (0.7-1.1cm)Aortic Cusp Exc.1.6 (1.5-2.0cm) IVSs2.2 cmEPSS0.6 (>1.0cm) LVDs4.3 (2.5-4.0cm) PWs2.3 cm <Conclusion> Technically limited study due to pt's position and resistance. Normal left ventricular chamber size, systolic function to the extent visualized. Left ventricular ejection fraction grossly estimated to be 60 %. Study quality precludes accurate assessment of regional wall motion. Mild left ventricular hypertrophy. Small posterior pericardial effusion. Moderate bi-atrial enlargement. Mild right ventricular enlargement. Moderate focal aortic valve sclerosis with borderline cusp excursion. Thickened mitral valve leaflets with normal excursion. Mitral annulus and aortic root calcification. Normal tricuspid valve structure. Subcostal view unobtainable due to pt's refusal. A color flow and spectral Doppler study was performed and revealed: Trace aortic regurgitation. Trace mitral regurgitation. Mitral diastolic velocities suggest reduced left ventricular relaxation c/w mild LV diastolic dysfunction (Grade I ). Trace tricuspid regurgitation. Tricuspid systolic velocities suggests peak right ventricular systolic pressure of 20 mmHg. No respiratory variation more than 25% across MV. No respiratory variation more than 50% across TV.
--- NOTE | 2020-08-27 16:15 | NUR ---
NURSE NOTES: Pt turned and repositioned. Oral care done. No distress noted.
--- NOTE | 2020-08-27 18:05 | Diagnostic Imaging Report ---
EXAM: XR Abdomen, 2 Views CLINICAL HISTORY: NGT TECHNIQUE: Frontal view of the abdomen/pelvis with upright view of the abdomen. COMPARISON: 08/26/2020. FINDINGS: Lower thorax: Cardiomegaly. Interstitial prominence of the right lung base Intraperitoneal space: No free air. Gastrointestinal tract: Unremarkable. No dilation. Bones/joints: Osteopenia. Vasculature: Atherosclerotic disease of the aortic knob. Tubes, lines and devices: NG tube is noted in place with its tip and side-port in good position below the diaphragm. IMPRESSION: NG tube is noted in place and in good position.
--- NOTE | 2020-08-27 18:20 | NUR ---
NURSE NOTES: Pt fully cleaned and linen changed. Simple mask 6L placed on pt d/t tachypnea.
[2020-08-27] MEDS ORDERED: NS Irrig 1000ml ONE (18:35)
--- NOTE | 2020-08-27 19:00 | NUR ---
NURSE NOTES: Carla held at this time d/t pt's HR dropping down to the mid 50's.
--- NOTE | 2020-08-27 19:08 | NUR ---
NURSE HAND-OFF REPORT: Latest Vital Signs: Temperature 98.5 , Pulse 60 , B/P 92 /30 , Respiratory Rate 19 , O2 SAT 100 , Simple Mask, O2 Flow Rate 6.0 . Vital Sign Comment: EKG Rhythm: Atrial Fibrillation Rhythm change?: N Notified?: Y -PT,SEEN BY ANASTACIA GOMEZ MD Response: Latest Elias Fall Score: 60 Fall Risk: High Risk Safety Measures: Call light Within Reach, Bed Alarm Zone 2, Side Rails Side Rails x3, Bed position Low and Locked. Fall Precautions: Yellow Socks Yellow Gown Door Sign Patient Fall Education Report given to BILL Braxton.
--- NOTE | 2020-08-27 19:22 | NUR ---
NURSE NOTES: Called and notified MD Lombardo Patient is going kathy at this time HR 37, Cardizem gtt has been off now. Patient is DNR/DNI. Aware.
--- NOTE | 2020-08-27 19:26 | NUR ---
PRONOUNCEMENT: No Code. Called to pronounce patient. Absence of spontaneous respirations, no cardiac or breath sounds on auscultation. Pupils fixed and dilated. No carotid pulse or chest movement. Patient at 1925. notified PER . Family was notified at 1925 by Cheryl KHAN.
--- NOTE | 2020-08-27 19:26 | NUR ---
NURSE NOTES: received report adebayo rn pt bradycardia -asysistolie pt dnr-dni no pulse no bp DR BRAVO WAS NOTIFY AND FAMILY WAS NOTIFY POST MORTIM CARE DONE
[2020-08-27] MEDS ORDERED: 1/2 NS 1000ml IV ONE (19:35)
[2020-08-27] MEDS ORDERED: NS 275ml ONE (19:35)
[2020-08-27] MEDS ORDERED: Tubing IV Secondary IV ONE ×2 (19:35)
--- NOTE | 2020-08-27 19:38 | NUR ---
NURSE NOTES: spoke to Rachel from [facility] at this time. Patient is not a candidate DDN # [id number].
--- NOTE | 2020-08-27 19:41 | NUR ---
NURSE NOTES: Called [facility] office at this time, spoke with Nicolás, patient is not a [facility] case.
--- NOTE | 2020-08-27 19:43 | NUR ---
NURSE NOTES: Called and notified MD Lombardo at this time Patient at 1925.
--- NOTE | 2020-08-27 20:26 | NUR ---
NURSE NOTES: PORNOUNE BY Jt FUNES RN
[2020-08-27] MEDS ORDERED: Sennosides 8.6mg tab ORAL SCH (21:00)
[2020-08-27] MEDS ORDERED: Atorvastatin 80mg tab ORAL SCH (21:00)
--- NOTE | 2020-08-28 08:15 | Consultation ---
DATE OF CONSULTATION: 08/27/2020 CARDIOLOGY CONSULTATION CONSULTING PHYSICIAN: Junior Zendejas M.D. REFERRING PHYSICIAN: Eric Lombardo M.D. REASON FOR CONSULTATION: Atrial fibrillation with rapid ventricular response. HISTORY OF PRESENT ILLNESS: The patient is a 79-year-old gentleman with history of hypertension and paroxysmal atrial fibrillation, on apixaban, CVA, dementia, hyperlipidemia, who was sent from a [facility] for hematuria. The patient has a chronic indwelling Markham that was removed prior to arrival to the emergency room. The patient was noted to have bleeding from the urethra, and it is not clear whether the patient had traumatic removal of Markham or not. The patient is not able to provide any information. Per my evaluation, he is confused, in restraints. The patient at the time of my evaluation is tachycardic with heart rate in 150s, in atrial fibrillation and rapid ventricular response. REVIEW OF SYSTEMS: Cannot be obtained. PAST MEDICAL HISTORY: As mentioned above. FAMILY HISTORY: Noncontributory. SOCIAL HISTORY: He lives in a [facility]. Does not smoke or drink alcohol. PHYSICAL EXAMINATION: VITAL SIGNS: Blood pressure of 140/58, pulse 140 01:13, respirations 18, and temperature 96.6. HEAD AND NECK: No JVD. LUNGS: Coarse rhonchi. CARDIOVASCULAR: Irregularly irregular S1 and S2 with no gallop or murmur. ABDOMEN: Soft. EXTREMITIES: No pitting edema. He has a Markham, which has joslyn hematuria. LABORATORY AND DIAGNOSTIC DATA: Labs show white count of 24.2, hemoglobin of 12, hematocrit of 35, and platelet count of 51. His sodium is 140, potassium 3.0, BUN of 69, creatinine 2.3, and glucose of 167. Troponin is 0.235. ASSESSMENT AND PLAN: 1. Wur-DY-gkeplssyr myocardial infarction with troponin rise from 0.13 to 0.23. This partially could be due to renal failure with a creatinine of 2.3 as well as due to atrial fibrillation with rapid ventricular response. The patient is already on metoprolol. We will hold off aspirin in view of platelet count, which is only 58, but continue Lipitor. We will repeat EKG and echocardiogram for further evaluation. 2. Atrial fibrillation with rapid ventricular response, off anticoagulation in view of active hematuria as well as low platelet count of only 50. I will transfer the patient to intensive care unit and start the patient on Cardizem drip at 10 mg/hour until we get better control. 3. History of pulmonary hypertension, on Revatio 20 mg b.i.d. We may need to stop that to allow high blood pressure from the Cardizem to 03:05 atrial fibrillation. The patient also received 0.25 mg IV digoxin. 4. Hypertension, on metoprolol and Cardizem and p.r.n. hydralazine. 5. Dementia. 6. UTI. 7. Hematuria. Thank you very much for allowing me to participate in the care of this patient. Please do not hesitate to contact me for any questions regarding my evaluation. Junior Zendejas M.D. DR: KAITLIN JOB#: [id number] CC:
--- NOTE | 2020-08-28 09:55 | Discharge Summary ---
Discharge Summary Discharge Summary _ SUMMARY DATE OF ADMISSION: 08/26/2020 DATE OF EXPIRATION: 08/27/2020 REASON FOR ADMISSION: 79 years old male with past medical history of CVA, atrial fibrillation, on chronic anticoagulation with apixaban, hypertension, hyperlipidemia, dementia, presented for evaluation of hematuria. Patient had a chronic indwelling catheter that was removed prior. Television Production Technician noted bleeding in the ambulance. It was unclear if it was a traumatic removal of the [place] or not. Patient by himself was unable to provide any history. Laboratory work-up revealed leukocytosis WBC 21.4, hemoglobin 12.5,, hematocrit 37.3 platelet count 47. Stable electrolytes. BUN 73, creatinine 2.2. Lactic acid 3.3 repeated 2.2. Glucose 160. Troponin 0.132. EKG revealed atrial fibrillation with rapid ventricular response Urinalysis revealed +3 protein, +2 leukocyte esterase, pyuria and few bacteria. Rapid COVID-19 was negative. Chest x-ray demonstrated right basilar atelectasis. In emergency department patient received IV Digoxin, started on Cardizem for rate control , pancultured , received IV fluids , started on empiric antibiotic and subsequently admitted for further management. CONSULTANTS: experimental display builder Dr. Watters urologist Dr Lopez pulmonary iv therapy nurse/oncologist Dr. Hernandez [facility]: Patient admitted to direct observational unit. Patient was on IV fluids and empiric antibiotics. Anticoagulation was on hold given hematuria. Supplemental oxygen was on board as needed to keep pulse oximetry above 92%. Repeated troponin 0.235. Per experimental display builder , patient had NSTEMI with elevated troponin with troponin rising from 0.13 to 0.23. NSTEMI partially could be due to renal failure as well as to the atrial f ibrillation with rapid ventricular response. Patient was on beta-shaheed , however aspirin was hold in view of the low platelet count and gross hematuria. Statin continued. Patient continued to have atrial fibrillation with rapid ventricular response. Patient was transferred to ICU and started on Cardizem drip to achieve heart rate control. Patient with a history of pulmonary hypertension , and at home was on Revatio, which was hold at this time. Blood pressure was managed with metoprolol and Cardizem ; hydralazine was on board as needed for blood pressure spikes. Urologist seen and evaluated patient. Markham catheter was placed by emergency room physician. Urologist hand irrigated Markham catheter, which irrigated fairly well without significant clots. Urine was blood-tinged. Patient started on Flomax and Avodart. Urologist recommended to keep patient off anticoagulation; repeat hand irrigation as needed and consider renal imaging and cystoscopy electively. NG tube was placed for nutrition. Abdominal x-ray confirmed placement. Patient continued on Cardizem drip. Additional dose of Digoxin was provided. Medical Physics Researcher seen and evaluated patient . Smear showed abnormality, and flow cytometry subsequently was ordered . Hepatitis panel was negative. HIV test was nonreactive. Renal parameters and electrolytes were closely monitor ; electrolytes/potassium corected. Creatinine remained elevated ; 2.3 the next day. The next day WBC 24.2. Patient continued to have A. fib with rapid ventricular response. Overall prognosis was poor . CODE STATUS changed to DNR/DNI . Patient condition was rapidly deteriorating. Patient was pronounced on 08/27 at 19:26. Cause of : cardiopulmonary arrest. FINAL DIAGNOSES: Sepsis NSTEMI Atrial fibrillation with rapid ventricular response Hypertension UTI Gross hematuria Acute renal failure BPH Urinary retention Probable neurogenic bladder Thrombocytopenia I have been assigned to dictate discharge summary for this account. I was not involved in the patient's management. Sarah Gusman NP Aug 28, 2020 09:55
--- NOTE | 2020-08-28 13:48 | Diagnostic Imaging Report ---
EXAM: US Duplex Bilateral Lower Extremities Veins CLINICAL HISTORY: SCREEN TECHNIQUE: Real-time duplex ultrasound scan of the bilateral lower extremity veins integrating B-mode two-dimensional vascular structure, Doppler spectral analysis, color flow Doppler imaging and compression. COMPARISON: No relevant prior studies available. FINDINGS: Right deep veins: Unremarkable. No DVT in the right common femoral, femoral, proximal deep femoral or popliteal veins. The veins demonstrate normal color flow, are normally compressible, with normal phasic flow and/or augmentation response. Left deep veins: Possible nonocclusive thrombus within the left common femoral vein described by the barrel roller operator, however patent Doppler flow is seen throughout all the visualized left lower extremity segments. Soft tissues: No popliteal cyst. IMPRESSION: 1. Possible nonocclusive thrombus within the left common femoral vein described by the barrel roller operator, however patent Doppler flow is seen throughout all the visualized left lower extremity segments. 2. No evidence of DVT in the right lower extremity.
--- NOTE | 2020-08-28 14:19 | Diagnostic Imaging Report ---
EXAM: US Abdomen Complete CLINICAL HISTORY: ABD DIST TECHNIQUE: Real-time ultrasound of the abdomen with image documentation. COMPARISON: No relevant prior studies available. FINDINGS: Liver: Liver diameter 13.5 cm. No visible parenchymal lesions. No intrahepatic biliary ductal dilatation. Gallbladder: Gallbladder sludge. No gallbladder wall thickening or pericholecystic fluid. Common bile duct: Common bile duct diameter of 5.1 mm, within normal limits. Pancreas: 4.7 x 3.4 cm hypoechoic lesion in or adjacent to the pancreatic head. Kidneys: Moderate left-sided hydronephrosis. Incidental note of a 12 x 11 mm simple cortical cyst in the right kidney and a 11 x 8 x 6 mm simple-appearing cortical cyst in the right kidney. Right kidney length of 9.8 cm. Left kidney length of 9.9 cm. Normal cortical thickness. No visible stones. Spleen: Spleen diameter of 7.5 cm, within normal limits. Aorta: Unremarkable. Visualized portions appear unremarkable without evidence of aneurysm. Inferior vena cava: Unremarkable. Pleural space: Small right pleural effusion. Tubes, lines and devices: Markham catheter within the urinary bladder. Other findings: Enlarged prostate gland with estimated volume of 72 cc. IMPRESSION: 1. 4.7 x 3.4 cm hypoechoic lesion in or adjacent to the pancreatic head. Recommend further evaluation with contrast-enhanced CT or MRI. 2. Gallbladder sludge. No gallbladder wall thickening or pericholecystic fluid. Common bile duct diameter within normal limits. 3. Moderate left-sided hydronephrosis. 4. Incidental note of a 12 x 11 mm simple cortical cyst in the right kidney and a 11 x 8 x 6 mm simple-appearing cortical cyst in the right kidney. 5. Enlarged prostate gland with estimated volume of 72 cc. 6. Small right pleural effusion.
== END 2020-08-27 19:36 | disposition expired | DRG 720 ==
LOC: EDBD 21:20 → EMR 21:44 → 2W 22:24 → EDBEDREQSVC 22:39 → EDBEDREQ 22:39 → ICU 08-27 12:14
DX: A41.9 Sepsis, unspecified organism (principal); N39.0 Urinary tract infection, site not specified; I48.91 Unspecified atrial fibrillation; D68.8 Other specified coagulation defects; I21.4 Non-ST elevation (NSTEMI) myocardial infarction; I12.9 Hypertensive chronic kidney disease with stage 1 through stage 4 chronic kidney disease, or unspecified chronic kidney disease; N18.9 Chronic kidney disease, unspecified; N40.1 Benign prostatic hyperplasia with lower urinary tract symptoms; R33.8 Other retention of urine; I25.10 Atherosclerotic heart disease of native coronary artery without angina pectoris; F03.90 Unspecified dementia, unspecified severity, without behavioral disturbance, psychotic disturbance, mood disturbance, and anxiety; Z86.73 Personal history of transient ischemic attack (TIA), and cerebral infarction without residual deficits; E78.5 Hyperlipidemia, unspecified; Z79.01 Long term (current) use of anticoagulants; R31.0 Gross hematuria; N17.9 Acute kidney failure, unspecified; N31.9 Neuromuscular dysfunction of bladder, unspecified; D69.6 Thrombocytopenia, unspecified; Z79.82 Long term (current) use of aspirin; I27.20 Pulmonary hypertension, unspecified; Z66 Do not resuscitate
CPT/HCPCS: 36415; 51702; 71045; 74018; 76700; 80048; 80053; 81003; 82248; 82270; 82550; 82553; 82607; 82728; 82746; 83540; 83550; 83605; 84484; 85007; 85025; 85060; 85610; 85660; 85730; 86703; 86705; 86709; 86803; 86850; 86900; 86901; 87040; 87081; 87086; 87340; 93005; 93306; 93970; 96365; 96368; 96375; 99291; J7030; U0002